=== PATIENT | male | born 1995 | race Two or more races ===

== ENCOUNTER 2025-02-23 17:52 | Emergency (ER) | payer MEDICAID, SELFPAY ==
[2025-02-23 18:03] VITALS: BP 144/80; PULSE 76; RESP 18; TEMP 37; O2SAT 97; BMI 26.3
--- NOTE | 2025-02-23 18:25 | XR_ITS ---
Examination: CT abdomen and pelvis without contrast. Coronal 3-D reconstructions. Sagittal 2-D reconstructions. Date and time of exam:February 23, 2025 1848 hours INDICATIONS: Right-sided flank pain today CTDI: vol (mGy): 7.03 DLP: (mGycm): 279 Technique: Axial images of the abdomen have been obtained, 3 mm slice thickness Intravenous contrast material has not been administered. Low dose protocols were performed. One or more of the following dose reduction techniques were used; automated exposure control, adjustment of the mA and/or KV according to patient size, use of iterative reconstruction technique. Findings: No focal liver lesions, no gallstones No pancreatic or adrenal mass No renal or ureteral calculi, no hydronephrosis No bowel obstruction No pericecal inflammatory changes No diverticulitis Contracted urinary bladder, no bladder calculi Mild old wedging T11 IMPRESSION: No renal or ureteral calculi, no hydronephrosis No CT findings of appendicitis bowel obstruction or diverticulitis
--- NOTE | 2025-02-23 18:26 | EDNOTE_ITS ---
ED Male Genitalurinary RME/HPI General Chief complaint: Urogenital-Male Stated complaint: RIGHT KIDNEY PAIN WITH BLOOD IN URINE Time Seen by Provider: 02/23/25 18:20 Arrival date/time: 02/23/25 17:52 RME / HPI RME / HPI Narrative: 29-year-old male with a past medical history of renal calculi with lithotripsy presents to the ED with a complaint hematuria and right flank pain since this morning. He denies fever or chills, nausea or vomiting he denies any radiation of pain down into his testicles. He denies the pain being constant but states it waxes and wanes which is typical of his previous occurrence of renal calculi. Related Data Previous Rx's ?Medication ?Instructions ?Recorded tamsulosin 0.4 mg capsule 0.4 mg PO QDAY #30 caps 02/11 11/05 Allergies Allergy/AdvReac Type Severity Reaction Status Date / Time No Known Allergies Allergy Verified 02/23/25 17:56 Review of Systems Review of Systems Systems Reviewed: All systems reviewed, normal except as documented Past Medical History Social History SMOKING STATUS: Never smoker ED Exam Narrative Physical exam: Alert and oriented, very pleasant 29-year-old male, mild acute pain distress. Lungs are clear, regular rate and rhythm. Abdomen is soft with mild right flank tenderness. Positive right CVA tenderness. No left CVA tenderness noted. Moves all extremities well. Course Course Course Narrative: IV fluids of sodium chloride 1 L ordered. He was given Toradol 30 mg IVP as well as tamsulosin 0.4 mg p.o. Vital signs blood pressure 144/80, pulse 76, respirations 18 and nonlabored, temp 98.6, O2 sat 97% on room air. CBC reveals a normal white count, normal H&H and normal platelets. CMP is normal with the exception of a minimally elevated creatinine of 1.4 with a normal BUN. Urinalysis reveals clear light yellow urine with a specific gravity of 1.031 with trace protein, 3+ blood, negative nitrites, negative leukocyte Esterace, 718 RBCs, 4 WBCs and no bacteria. CT of the abdomen and pelvis reveals: No renal or ureteral calculi, no hydronephrosis. No CT findings of appendicitis bowel obstruction or diverticulitis. Symptoms, exam, and diagnostic studies are consistent with probable Hematuria secondary to probable passed renal calculi. Patient was advised to follow-up with his primary care physician in 24 to 48 hours, for referral to a urologist for further workup and evaluation of his hematuria. He will be prescribed Flomax as he has been having difficulty with urination. He was encouraged to return to the ED for any new or worsening symptoms. Quality Measures none Orders Category Date Time Status IV [Insert IV] NOW Care 02/23/25 18:23 Active NPO STAT Care 02/23/25 18:[address] abdomen pelvis wo con Stat Exams 02/23/25 18:25 Completed Amylase Stat Lab 02/23/25 18:40 Completed CBC Stat Lab 02/23/25 18:40 Completed Comprehensive Metabolic Panel Stat Lab 02/23/25 18:40 Completed Lipase Stat Lab 02/23/25 18:40 Completed Magnesium Stat Lab 02/23/25 18:40 Completed Phosphorous Stat Lab 02/23/25 18:40 Completed Urinalysis, C/S if Indicated Stat Lab 02/23/25 19:06 Completed Ketorolac Inj [Toradol Inj] Med 02/23/25 18:24 Discontinued 30 mg IVP X1 ONE Sodium Chloride 0.9% 1000 ml [Ns] 1,000 ml Med 02/23/25 18:22 Discontinued IV 999 mls/hr Tamsulosin HCl [Flomax] Med 02/23/25 18:24 Discontinued 0.4 mg PO X1 ONE Vital Signs Vital signs: Vital Signs Temperature 98.6 F 02/23/25 18:03 Pulse Rate 76 02/23/25 18:03 Respiratory Rate 18 02/23/25 18:03 Blood Pressure 144/80 H 02/23/25 18:03 Pulse Oximetry (%) 97 02/23/25 18:03 Oxygen Delivery Method Room Air 02/23/25 18:03 Urogenital - Male Patient data External records reviewed:: None Clinical information provided by:: patient Social determinants that could affect healthcare access:: none Patient has the following chronic illnesses:: Renal calculi with renal colic How is presenting disease/condition affected by chronic disease/condition?: caused by Evaluation data The following diagnostics were reviewed and interpreted by me:: lab results and radiology exam(s) Lab and/or radiology exams considered but not ordered:: N/A Interpretation Summary: As noted above Medications / Prescriptions Medications or Prescriptions considered but not ordered:: N/A Medication administrations:: Medication Administration History Discontinued Medications Sodium Chloride (Ns) 1,000 mls @ 999 mls/hr IV .Q1H1M ONE Stop: 02/23/25 19:22 Last Infusion: 02/23/25 20:28 Dose: Infused Documented By: CVHeri Admin: 02/23/25 19:24 Dose: 999 mls/hr Documented By: EE Ketorolac Tromethamine (Ketorolac Inj 30 Mg/Ml Vial) 30 mg IVP X1 ONE Stop: 02/23/25 18:25 Last Admin: 02/23/25 19:21 Dose: 30 mg Documented By: EE Tamsulosin HCl (Tamsulosin Hcl 0.4 Mg Capsule) 0.4 mg PO X1 ONE Stop: 02/23/25 18:25 Last Admin: 02/23/25 19:21 Dose: 0.4 mg Documented By: GUME As noted above Consultations Consultation(s) initiated? (list below): Yes Consultation #1 (Physician, Specialty, Details): Discussed case with Dr. SAPIEN. Holt to discharge home with instructions to follow-up with his primary care physician for a referral to a urologist. Diagnosis Urogenital Male Differential Diagnosis: urinary tract infection and other (Pyelonephritis, renal calculi, renal colic, hematuria) Most likely diagnosis given after review of the tests above:: Hematuria likely secondary to passed renal calculi. Admission Indicated Admission indicated?: not indicated Explain why admission is indicated or not indicated:: Patient is stable for discharge Admission Request Was there a request for admission?: No Admission Attestation Admission request attestation: N/A Disposition Plan Disposition Plan: Discharge Discharge Attestation Discharge Attestation: The patient and all family members were given an opportunity to ask questions and understood the discharge instructions. Discharge instructions specifically effects, indications for sooner follow up or return to the emergency department, and the expected course of current diagnosis. Patient condition: Stable Discharge Plan Plan Patient Disposition: HOME (Self Care) Discharge Disposition comment: Stable and improved Prescriptions/Referrals Prescriptions/Med Rec: New tamsulosin 0.4 mg capsule 0.4 mg PO QDAY Qty: 30 0RF Referrals: No Primary/Family,Physician [Primary Care Provider] - In 1 week Problem List Clinical Impression: Hematuria of unknown etiology, Renal colic Patient/Caregiver Discharge Instructions Education Materials: Hematuria: Possible Causes, ED Hematuria Additional Instructions: Follow-up with your primary care physician in 24 to 48 hours to obtain a referral to a urologist for further workup and evaluation of your hematuria. Return to the ED for any new or worsening symptoms. Print Language: Yi Stand Alone Forms: Jannet Award Info., Patient Portal Info Letter PA/[employer] Supervising Physician PA/[employer] Supervising Physician: Dr. Elaine
[2025-02-23 19:00] LABS: Basophils # (Auto) 0.0 Thou/mm3 (0.0-0.2); Basophils % (Auto) 0 % (0-2.5); Eosinophils # (Auto) 0.2 Thou/mm3 (0.0-0.5); Eosinophils % (Auto) 2 % (0-10); Hematocrit 44.2 % (41.0-53.0); Hemoglobin 14.0 g/dL (13.5-16.0); Immature Granulocytes Auto 0.01 Thou/mm3 (0.00-0.00); Lymphocytes # (Auto) 3.6 Thou/mm3 (1.0-4.8); Lymphocytes % (Auto) 40 % (10-50); Mean Corpuscular HGB Conc 31.7 g/dl (31.0-37.0); Mean Corpuscular Hemoglobin 25.3 pg (25.0-35.0); Mean Corpuscular Volume 80 fL (80-100); Monocytes # (Auto) 0.7 Thou/mm3 (0.0-0.8); Monocytes % (Auto) 8 % (0-12); Neutrophils # (Auto) 4.4 Thou/mm3 (1.8-7.7); Neutrophils % (Auto) 50 % (37-80); Nucleated Red Blood Cell # 0.00 Thou/mm3 (0.00-0.00); Nucleated Red Blood Cell % 0 /100 WBC (0); Platelet Count 255 Thou/mm3 (140-440); RDW Standard Deviation 40.1 fL (35.1-43.9); Red Blood Count 5.54 Miln/mm3 (4.50-5.90); White Blood Count 8.9 Thou/mm3 (3.8-10.6)
[2025-02-23] MEDS: KETOROLAC INJ 30 MG/ML VIAL IVP (19:21)
[2025-02-23] MEDS: TAMSULOSIN HCL 0.4 MG CAPSULE PO (19:21)
[2025-02-23] MEDS: SODIUM CHLORIDE 0.9% 1000 ML 1,000 ML 999 ML IV (19:24)
[2025-02-23 19:48] LABS: Collection Type, Urine Clean Catch; Squamous Epithelial Cell,Urine 0 /hpf (0-5)
[2025-02-23 19:56] LABS: Alanine Aminotransferase 26 U/L (10-49); Albumin, Serum 4.8 gm/dL (3.5-5.0); Albumin/Globulin Ratio 1.8 (1.2-2.2); Alkaline Phosphatase 76 U/L (46-116); Anion Gap 10 (7-16); Aspartate Amino Transferase 23 U/L (0-34); BUN/Creatinine Ratio 12 Ratio (12-20); Bilirubin,Total 0.4 mg/dL (0.3-1.2); Blood Urea Nitrogen 17 mg/dL (9-23); Calcium 9.7 mg/dL (8.3-10.6); Calcium (Corrected) 9.7 mg/dL (8.5-10.1); Carbon Dioxide 27.7 mMol/L (20.0-31.0); Chloride 104 mMol/L (98-107); Creatinine (Component) 1.4 mg/dL (0.6-1.3); Estimated Creatinine Clearance 76.7 mL/min (>60); Globulin 2.7 gm/dL (2.3-3.5); Glucose 87 mg/dL (74-106); Lipase 33 U/L (12-53); Magnesium 2.0 mg/dL (1.6-2.6); Osmolality,Calculated 283 (275-295); Phosphorous 2.8 mg/dL (2.4-5.1); Potassium 4.1 mMol/L (3.4-5.1); Sodium 142 mMol/L (136-145); Total Protein 7.5 gm/dL (5.7-8.2); eGFR > 60 See Note
[2025-02-23 19:56] LABS: Bilirubin,Urine Negative (Negative); Blood,Urine 3+ (Negative); Clarity,Urine Clear (Clear/Hazy); Color,Urine Lt-Yellow (Lt Yel-Yel); Culture Indicated,Urine Not Indicated; Glucose, Urine Negative (Negative); Ketones,Urine Negative (Negative); Leukocyte Esterase,Urine Negative (Negative); Nitrite,Urine Negative (Negative); PH,Urine 6.5 (5.0-7.0); Protein,Urine Trace (Neg - Trace); RBC,Urine 718 /hpf (0-3); Specific Gravity,Urine 1.031 (1.001-1.035); Urobilinogen,Urine Negative mg/dL (0.0-1.0); WBC,Urine 4 /hpf (0-5)
[2025-02-23 20:36] LABS: Amylase 78 U/L (30-118)
[2025-02-23 21:55] VITALS: RESP 16
== END 2025-02-23 21:55 | disposition home or self-care (01) ==
PROVIDERS: Physician Assistant; Emergency Provider Emergency Medicine
DX: N23 Unspecified renal colic (principal); R31.9 Hematuria, unspecified
CPT/HCPCS: 36415; 74176; 80053; 81001; 82150; 83690; 83735; 84100; 85025; 96361; 96374; 99284; J1885; J7030; A9270